=== PATIENT | female | born 1970 | race Caucasian/White ===

== ENCOUNTER 2022-02-05 19:40 | Emergency (ER) | payer MEDICAID, OTHER ==
[~2022-02-05] VITALS: Ht 177.8 cm; Wt 60.8 kg
[2022-02-05 21:38] VITALS: BP 136/77
== END 2022-02-05 23:08 | disposition home or self-care (01) ==
LOC: ER 19:40
DX: S00.511A Abrasion of lip, initial encounter (principal); M25.562 Pain in left knee; M25.561 Pain in right knee; W18.09XA Striking against other object with subsequent fall, initial encounter; Y93.89 Activity, other specified; Y92.89 Other specified places as the place of occurrence of the external cause; Y99.8 Other external cause status
CPT/HCPCS: 73562